=== PATIENT | female | born 1935 | race Caucasian/White ===

== ENCOUNTER 2018-11-21 09:26 | Outpatient (CLI) | payer MEDICARE ==
--- NOTE | 2018-11-21 12:16 | BD ---
DEXA BONE DENSITOMETRY: (Dual energy X-ray Absorptiometry) DATE: 11-21-18 HISTORY: 83-year-old post-menopausal white female for age related osteoporosis screening. Height: 64 Weight: 121 lbs. Age at menopause: 53 years. FINDINGS: The bone mineral density (BMD) is given in grams per square centimeter (g/cm2): LUMBAR SPINE: BMD(g/cm2) T-score Z-score L1: 0.807 -1.7 0.8 L2: 0.746 -2.6 0.2 L3: 0.778 -2.8 0.1 L4: 0.784 -2.5 0.5 Total: 0.778 -2.4 0.3 HIP: Femoral neck: 0.672 -2.1 0.3 Total: 0.749 -1.6 0.6 IMPRESSION: 1) The mean bone mineral density of the lumbar spine is osteopenic. Fracture risk is increased. 2) The bone mineral density of the femoral neck is osteopenic. Fracture risk is increased. CORINNA Ramirez POS: KENNETH
== END 2018-11-21 09:27 | disposition home or self-care (01) ==
LOC: BICMAMMO 09:26
PROVIDERS: ATTEND Family Medicine
DX: Z12.31 Encounter for screening mammogram for malignant neoplasm of breast (principal); Z13.820 Encounter for screening for osteoporosis; Z78.0 Asymptomatic menopausal state; M85.88 Other specified disorders of bone density and structure, other site; Z80.3 Family history of malignant neoplasm of breast; R92.1 Mammographic calcification found on diagnostic imaging of breast
CPT/HCPCS: 77063; 77067; 77080

== ENCOUNTER 2019-12-20 10:32 | Outpatient (CLI) | payer MEDICARE ==
--- NOTE | 2019-12-20 11:38 | RAD ---
EXAM: Chest PA and lateral: HISTORY: History of tuberculosis exposure COMPARISON: None FINDINGS: Heart: Normal cardiac silhouette Aorta: Slight elongation aorta. Pulmonary vessels: Normal Costophrenic angles: Costophrenic angles are clear. Lungs: Hyperinflation. Chronic lung parenchymal changes. No masses or consolidation. Pneumothorax: No pneumothorax Osseous structures: No osseous abnormalities IMPRESSION: No acute cardiopulmonary process.
--- NOTE | 2019-12-20 13:18 | BD ---
DEXA BONE DENSITY STUDY: Date: 12/20/2019 HISTORY: Postmenopausal. FINDINGS: Lumbar Spine: BMD (g/cm2) L1 0.796 T-Score: -1.8 L2 0.724 T-Score: -2.8 L3 0.794 T-Score: -2.6 L4 0.818 T-Score: -2.2 Total 0.785 T-Score: -2.4 Left Femoral Neck: 0.646 T-Score: -1.8 Total Femur: 0.756 T-Score: -1.5 IMPRESSION: Osteopenia of the lumbar spine and left femoral neck. 10 year fracture for major osteoporotic fracture is 13% and for a hip fracture is 4%. These fracture probabilities were calculated for an untreated patient. POS: KENNETH
--- NOTE | 2019-12-27 13:25 | MMO ---
Bilateral MAMMO Bilat Screen [id number]. CLINICAL HISTORY: Patient is 84 years old and is seen for screening. The patient has no family history of breast cancer. The patient has no personal history of cancer. The patient has a history of left Excisional Biopsy at age 46 - benign. VIEWS: The views performed were: bilateral craniocaudal with tomosynthesis and bilateral mediolateral oblique with tomosynthesis. FILMS COMPARED: The present examination has been compared to prior imaging studies performed at [facility] on 12/09/2014, 12/16/2015, 08/04/2017 and 11/21/2018. This study has been interpreted with the assistance of computer-aided detection. MAMMOGRAM FINDINGS: The breasts are heterogeneously dense, which could obscure a lesion on mammography. There are stable benign appearing calcifications seen in both breasts. There are also vascular calcifications. There are no suspicious masses, suspicious calcifications, or new areas of architectural distortion. IMPRESSION: THERE IS NO MAMMOGRAPHIC EVIDENCE OF MALIGNANCY. A ROUTINE FOLLOW-UP MAMMOGRAM IN 1 YEAR IS RECOMMENDED. THE RESULTS OF THIS EXAM WERE SENT TO THE PATIENT. ACR BI-RADS Category 2 - Benign finding MAMMOGRAPHY NOTE: 1. A negative mammogram report should not delay a biopsy if a dominant of clinically suspicious mass is present. 2. Approximately 10% to 15% of breast cancers are not detected by mammography. 3. Adenosis and dense breasts may obscure an underlying neoplasm. Reported by: BELINDA CASTANEDA MD Electonically Signed: [id number]
== END 2019-12-20 10:33 | disposition home or self-care (01) ==
LOC: BICMAMMO 10:32
PROVIDERS: ATTEND Family Medicine
DX: Z12.31 Encounter for screening mammogram for malignant neoplasm of breast (principal); M81.0 Age-related osteoporosis without current pathological fracture; Z20.1 Contact with and (suspected) exposure to tuberculosis; M85.89 Other specified disorders of bone density and structure, multiple sites; Z91.89 Other specified personal risk factors, not elsewhere classified
CPT/HCPCS: 71046; 77063; 77067; 77080

== ENCOUNTER 2020-08-25 09:04 | Outpatient (CLI) | payer MEDICARE ==
--- NOTE | 2020-08-25 10:51 | RAD ---
2 VIEWS CHEST: Date: 08/25/2020 COMPARISON: 12/20/2019. HISTORY: Dyspnea. FINDINGS: Two views of the chest show a cardiomediastinal silhouette which is normal in size. Increased interst itial lung markings are stable. There is no evidence of consolidation, mass, or pleural effusion. Deg enerative changes are seen in the spine. IMPRESSION: No evidence of acute cardiopulmonary disease. POS: AH
== END 2020-08-25 09:05 | disposition home or self-care (01) ==
LOC: BICRAD 09:04
PROVIDERS: ATTEND Internal Medicine Critical Care Medicine
DX: R06.00 Dyspnea, unspecified (principal)
CPT/HCPCS: 71046